=== PATIENT | female | born 1995 | race American Indian/Alaskan Native ===

== ENCOUNTER 2018-05-13 12:39 | Emergency (ER) | payer MEDICAID ==
[2018-05-13 13:14] LABS: HCG Qualitative,Urine Positive (Negative)
--- NOTE | 2018-05-13 14:43 | Emergency Department Report ---
Blank Doc - Documentation Documentation: Patient is a 22-year-old female states that she has had some shortness of breath and dizziness past several days she also is having suicidal thoughts. Patient denies any homicidal thoughts or AUDITORY hallucinations. Patient removed to the main area for complete medical clearance for psychiatric evaluation.
[2018-05-13 15:07] LABS: Basophils % (Auto) 0.3 % (0.0-1.8); Eosinophils % (Auto) 0.4 % (0.0-4.3); Hematocrit 39.4 % (30.3-42.9); Hemoglobin 13.7 gm/dl (10.1-14.3); Lymphocytes # (Auto) 1.8 K/mm3 (1.2-5.4); Lymphocytes % (Auto) 16.3 % (13.4-35.0); Mean Corpuscular HGB Conc 35 % (30-34); Mean Corpuscular Hemoglobin 30 pg (28-32); Mean Corpuscular Volume 87 fl (79-97); Monocytes # (Auto) 0.8 K/mm3 (0.0-0.8); Monocytes % (Auto) 7.1 % (0.0-7.3); Platelet Count 176 K/mm3 (140-440); Red Blood Count 4.51 M/mm3 (3.65-5.03); Red Cell Distribution Width 13.9 % (13.2-15.2)
--- NOTE | 2018-05-13 15:12 | Emergency Department Report ---
HPI - General Chief Complaint: Dyspnea/Respdistress Time Seen by Provider: 05/13/18 14:35 - HPI HPI: 22-year-old female presents to the emergency department with a complaint of feeling "sick" that included some nausea, vomiting, mild shortness of breath and increased fatigue. The patient was found to be with a positive urine test on the fast track side. The patient says that she had a suspicion that she might be but she did not know for sure. Her last menstrual cycle was February 21. She denies any vaginal bleeding but does have some abdominal and/or pelvic cramping. With this she is . The patient also says that she is having suicidal ideations and has been having them for a few weeks. She does not have any particular plan as to how she would harm herself. She does have a history of bipolar disorder and schizoaffective and says that she has been noncompliant with her Risperdal and Zoloft. She denies any hallucinations or any homicidal ideations. She has not taken anything for any of her symptoms prior to presentation. She does not have any primary care physician, [facility] or psychiatrist in the area she says she recently moved from [place]. ED Past Medical Hx - Past Medical History Previous Medical History?: No - Surgical History Past Surgical History?: No - Social History Smoking Status: Never Smoker Substance Use Type: None - Medications Home Medications: Home Medications Medication Instructions Recorded Confirmed Last Taken Type Vit Calc,Iron,Folic 1 each PO QDAY #30 tablet 05/13/18 Unknown Rx [ Vitamins] ED Review of Systems ROS: Stated complaint: SOB/WEAK/DIZZY Other details as noted in HPI Comment: All other systems reviewed and negative Constitutional: other (fatigue). denies: fever Eyes: denies: eye pain, eye discharge, vision change ENT: denies: ear pain, throat pain Respiratory: shortness of breath. denies: cough Cardiovascular: denies: chest pain, palpitations Gastrointestinal: abdominal pain, nausea, vomiting Genitourinary: denies: urgency, dysuria, discharge Musculoskeletal: denies: back pain, joint swelling, arthralgia Skin: denies: rash, lesions Neurological: denies: headache, weakness, paresthesias Physical Exam - Physical Exam Vital Signs: Vital Signs 05/13/18 12:43 Temperature 98.8 F Pulse Rate 94 H Respiratory 18 Rate Blood Pressure 118/69 O2 Sat by Pulse 99 Oximetry Physical Exam: GENERAL: The patient is well-developed well-nourished. HENT: Normocephalic. Atraumatic. Patient has moist mucous membranes. EYES: Extraocular motions are intact. Pupils equal reactive to light bilaterally. NECK: Supple. Trachea is midline. CHEST/LUNGS: Clear to auscultation. There is no respiratory distress noted. HEART/CARDIOVASCULAR: Regular. There is no tachycardia. There is no murmur. ABDOMEN: Abdomen is soft, nontender. Patient has normal bowel sounds. There is no abdominal distention. SKIN: Skin is warm and dry. NEURO: The patient is awake, alert, and oriented. The patient is cooperative. The patient has no focal neurologic deficits. The patient has normal speech. MUSCULOSKELETAL: There is no tenderness or deformity. There is no limitation range of motion. There is no evidence of acute injury. ED Course Vital Signs 05/13/18 12:43 Temperature 98.8 F Pulse Rate 94 H Respiratory 18 Rate Blood Pressure 118/69 O2 Sat by Pulse 99 Oximetry ED Medical Decision Making - Lab Data Result diagrams: 05/13/18 14:52 05/13/18 14:52 - EKG Data -: EKG Interpreted by Me EKG shows normal: sinus rhythm, axis, intervals, QRS complexes, ST-T waves Rate: normal - EKG Data When compared to previous EKG there are: previous EKG unavailable Interpretation: normal EKG - Radiology Data Radiology results: report reviewed, image reviewed interpreted by me: Chest x-ray does not show any acute process. There are no pleural effusions, obvious pneumonia and there is no pneumothorax. EXAM: US OB lt; = 14 WEEKS FETUS HISTORY: abd pain, TECHNIQUE: Transabdominal sonography of the pelvis. PRIORS: None. FINDINGS: There is a single, live intrauterine . Ultrasound estimated gestational age is 11 weeks 6 days. Ultrasound estimated date of confinement is 26 November 2018. heart motion is detected. The right ovary measures 2.6 x 1.5 x 3.4 cm and is grossly unremarkable. The left ovary measures 3.8 x 1.3 x 1.8 cm and is grossly unremarkable. Remainder of uterus and adnexa grossly unremarkable. IMPRESSION: 1. Single, live intrauterine . Transcribed By: [facility] Dictated By: BRADLY JUAN MD Electronically Authenticated By: BRADLY JUAN MD Signed Date/Time: 05/13/181908 - Medical Decision Making This patient presented with the complaints of suicidal ideations but also had some complaints of some recent nausea, vomiting, increased fatigue and occasional shortness of breath. Heart and lung sounds are normal to auscultation. The patient does not have any signs of any respiratory distress. A chest x-ray was done that does not show any pneumonia, pleural effusions, pneumothorax, or any other acute process. Initially, the patient had a urine test that was positive. This may be the reason for her other symptoms. An ultrasound was done that shows a single live intrauterine at about 11 weeks and 6 days. The rest the patient's labs have been unremarkable. Her vital signs are stable throughout her ED course. The patient has been reevaluated multiple times and does not appear to be in any distress. There has been no vomiting within the emergency department the patient has no current complaints of shortness of breath. However the patient does continue to say that she has suicidal ideations. She was seen by the psych outside sales inspector who did not feel that the patient met criteria for inpatient psychiatric treatment. However I have made the patient a 1013 as I do feel that she fits the criteria to be a 1013 and for possible inpatient psychiatric treatment with the criteria of being a danger to oneself with the consistent suicidal ideations and since she has not been stabilized on her medications. She does not appear to have any family support and she does not have any established care from a primary care physician or psychiatrist at this time. The patient will be seen by the psychiatric team tomorrow for further evaluation. I'm starting the patient on vitamins. She will be given outpatient referrals for [facility]ER groups. We are awaiting a urinalysis. However at this time I feel the patient is medically cleared for psychiatric placement. - Differential Diagnosis , depression, bipolar disorder, viral syndrome Critical Care Time: No Critical care attestation.: If time is entered above; I have spent that time in minutes in the direct care of this critically ill patient, excluding procedure time. ED Disposition Clinical Impression: Suicidal ideations Qualifiers: Weeks of gestation: 12 weeks Qualified Code(s): Z3A.12 - 12 weeks gestation of Depression Qualifiers: Depression Type: unspecified Qualified Code(s): F32.9 - Major depressive disorder, single episode, unspecified Disposition: DC/[place]-65 PSY HOSP/PSY UNIT Is pt being admited?: No Condition: Stable Instructions: (ED) Prescriptions: Vit Calc,Iron,Folic [ Vitamins] 1 each PO QDAY #30 tablet Referrals: [facility] [Provider Group] - [facility]/LEONELA MITCHELL [Provider Group] - [facility] Time of Disposition: 19:35
[2018-05-13 15:17] LABS: BUN/Creatinine Ratio 11; Blood Urea Nitrogen 8 mg/dL (7-17); Calcium 9.4 mg/dL (8.4-10.2); Hemolysis Index 23
[2018-05-13 15:25] LABS: INR 0.9 (0.87-1.13)
[2018-05-13 15:26] LABS: Partial Thromboplastin Time 23.3 Sec. (24.2-36.6)
--- NOTE | 2018-05-13 17:01 | XRay Report ---
FINAL REPORT EXAM: XR CHEST 1V AP HISTORY: SOB TECHNIQUE: upright single view chest PRIORS: None. FINDINGS: Cardiac and mediastinal contours are unremarkable. No focal pulmonary infiltrate is identified. No pleural fluid collection seen. Pulmonary vasculature is unremarkable. IMPRESSION: Negative single-view chest
--- NOTE | 2018-05-13 19:14 | Ultrasound Report ---
FINAL REPORT EXAM: US OB < = 14 WEEKS FETUS HISTORY: abd pain, TECHNIQUE: Transabdominal sonography of the pelvis. PRIORS: None. FINDINGS: There is a single, live intrauterine . Ultrasound estimated gestational age is 11 weeks 6 days. Ultrasound estimated date of confinement is 26 November 2018. heart motion is detected. The right ovary measures 2.6 x 1.5 x 3.4 cm and is grossly unremarkable. The left ovary measures 3.8 x 1.3 x 1.8 cm and is grossly unremarkable. Remainder of uterus and adnexa grossly unremarkable. IMPRESSION: 1. Single, live intrauterine .
[2018-05-13] MEDS: PRENATAL VITAMIN PO SCH (22:10)
[2018-05-13 23:02] LABS: Bacteria,Urine 1+ /HPF (Negative); Bilirubin,Urine NEG (Negative); Blood,Urine NEG (Negative); Color,Urine Yellow (Yellow); Protein,Urine <15 mg/dL mg/dL (Negative); RBC,Urine < 1.0 /HPF (0.0-6.0)
[2018-05-13 23:09] LABS: Amphetamine Screen,Urine PRESUMPTIVE NEGATIVE; Benzodiazepines Screen,Urine PRESUMPTIVE NEGATIVE; Cannabinoid Screen,Urine PRESUMPTIVE NEGATIVE; Cocaine Screen,Urine PRESUMPTIVE NEGATIVE; Methadone Screen,Urine PRESUMPTIVE NEGATIVE; Opiate Screen,Urine PRESUMPTIVE NEGATIVE
[2018-05-14] MEDS: ZOFRAN ODT PO PRN (10:30)
[2018-05-14] MEDS: PRENATAL VITAMIN PO SCH (12:38)
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
[2018-05-15] MEDS: ZOFRAN ODT PO PRN (09:51)
[2018-05-15] MEDS: PRENATAL VITAMIN PO SCH (09:51)
--- NOTE | 2018-05-15 18:03 | Progress Note ---
Subjective - Reason for Consult Consult date: 05/15/18 Reason for consult: Psychiatric Follow-up Evaluation - Chief Complaint Chief complaint: " I'm fine" Patient is a 22-year-old female who presents to the emergency department with a complaint of feeling "sick" that included some nausea, vomiting, mild shortness of breath and increased fatigue. The patient was found to be with a positive urine test. Her last menstrual cycle was February 21. Patient has a PPHx of Schizoaffective Disorder, Bipolar Type. Today the patient presents calm and cooperative. She states, " I haven't had any suicidal thoughts today." She reports good sleep and appetite. She denies SI/HI, A/VH, and delusions. Mental Status Exam - Vital signs Last Vital Signs Temp 98.9 F 05/15/18 08:00 Pulse 83 05/15/18 08:00 Resp 20 05/15/18 08:00 BP 106/68 05/15/18 08:00 Pulse Ox 100 05/15/18 08:00 - Exam Narrative exam: Mental Status Exam General Appearance: Causally Dressed-hospital gown Eye Contact: Intermittent Orientation: Alert and oriented x 4 ( person, place, time, and situation) Attitude/Behavior: Cooperative Sensorium: Clear Psychomotor & Musculoskeletal Activity: Ambulatory Mood: "I'm fine." Affect: Constricted Speech/Language: Regular rate and tone Thought Processes: Organized, logical Thought Content: Reality oriented. Patient denies delusions. Perception: Patient denies A/V/T hallucinations. Concentration/Attention: Impaired Suicidal Ideations/Plan: Patient denies. Homicidal Ideations/Plan: Patient denies. Insight: Variable Judgment: Variable Assessment and Plan Impression: PPHx of Schizoaffective Disorder, Bipolar Type. Mood Disorder Unspecified Today the patient presents calm and cooperative during the assessment. She denies SI/HI, A/VH, and delusions. Patient has been noncompliant with medications for 2 months. Urine HCG positive. DDx: r/o MDD, recurrent, severe r/o Bipolar Disorder, II Recommendation/Plan: 1. Continue 1013 and reassess in 24 hours. 2. Gain collateral to determine proper disposition. 3. Patient refuses medication. She does not want to start medication. She would like to wait until she is able to consult with an GINNER. 4. Will monitor mood, psychosis, sleep, appetite, compliance, and side effects.
[2018-05-16] MEDS: PRENATAL VITAMIN PO SCH (11:00)
--- NOTE | 2018-05-16 12:41 | Progress Note ---
Subjective - Reason for Consult Consult date: 05/16/18 Reason for consult: Psychiatry Follow-up - Chief Complaint Chief complaint: "I'm much better" 22-year-old female who presents to the emergency department with a complaint of feeling "sick" that included some nausea, vomiting, mild shortness of breath and increased fatigue. Also, the patient endorsed SI's on admission. Today the patient is calm and cooperative during the assessment. She stated that she felt "overwhelmed" because she had just moved to area with her boyfriend. She stated that she takes Risperdal and Zoloft before she got . She want to see an INTEGRATION SPECIALIST physician before she start taking psy medication. She stated that she reside with a her boyfriend and a family friend locally. She denies SI/HI's, AVH's, and depressuion. Per the record no behavior disturbance overnight. She stated that she is looking forward to being a mother. Mental Status Exam - Vital signs Last Vital Signs Temp 98.2 F 05/15/18 20:00 Pulse 98 H 05/15/18 20:00 Resp 18 05/15/18 20:00 BP 99/54 05/15/18 20:00 Pulse Ox 98 05/15/18 20:00 - Exam Narrative exam: MSE: Appearance: calm, cooperative Behavior: regular eye contact Speech: regular rate and tone Mood: "okay" Affect: congruent to mood Thought Process: logical Thought Content: denies SI/HI's and AVH's Motor Activity: sitting up in bed Cognition: A/O x 3 Insight: appropriate Judgment: appropriate Assessment and Plan Impression: Mood Disorder Unspecified. Today the patient is calm and cooperative during the assessment. The patient is no threat to self. Urine HCG positive. DDx: R/O MDD, recurrent, severe R/O Bipolar Disorder, II Recommendation/Plan: Rescind 1013. Risk/benefit reference medication treatment discussed with patient. She want to see a INTEGRATION SPECIALIST Physician before she start taking psy medication. The patient can follow up with [facility] for outpatient psy services.
--- NOTE | 2018-05-16 15:00 | Emergency Department Report ---
Blank Doc - Documentation Documentation: I saw this patient originally when she came in to the emergency department for some depression and suicidal ideations. She was also found to be and the was evaluated with an ultrasound that showed a live intrauterine . The patient is been in the emergency department for multiple days and has been followed by the psychiatric team. At this time the patient has no suicidal ideations, is calm and appropriate and appears psychiatrically stabilized. The 1013 was rescinded by the psychiatric team and I've been asked to provide discharge paperwork for her. The patient will be given local PATIENT SCHEDULING MANAGER referrals and has been started on vitamins. She was also given some psychiatric outpatient referrals. She has been instructed to return to the emergency Department with any worsening of her symptoms, thoughts of harming herself or others, any concern for , or with any acute distress.
[2018-05-16 16:03] VITALS: BP 115/61
== END 2018-05-16 16:00 | disposition home or self-care (01) ==
LOC: ED 12:39 → EEVIPCON 12:39 → ED 05-16 16:00
DX: O99.341 Other mental disorders complicating pregnancy, first trimester (principal); F31.9 Bipolar disorder, unspecified; O21.9 Vomiting of pregnancy, unspecified; F25.9 Schizoaffective disorder, unspecified; F39 Unspecified mood [affective] disorder; Z3A.12 12 weeks gestation of pregnancy
CPT/HCPCS: 36415; 71045; 76801; 80048; 80307; 81001; 81025; 85025; 85610; 85730; 93005; 93010; 99285; G0480; 80320; Q0162

== ENCOUNTER 2018-06-23 13:21 | Emergency (ER) | payer MEDICAID ==
[2018-06-23 15:25] VITALS: BP 111/61
[2018-06-23] MEDS ORDERED: TYLENOL PO ONE (20:18)
[2018-06-23] MEDS ORDERED: BENADRYL PO ONE (20:18)
[2018-06-23] MEDS ORDERED: DELTASONE PO ONE (20:18)
[2018-06-23] MEDS ORDERED: REGLAN PO ONE (20:19)
--- NOTE | 2018-06-23 20:23 | Emergency Department Report ---
ED Headache HPI - General Chief Complaint: Headache Stated Complaint: 17 WEEKS/NAUSEA Time Seen by Provider: 06/23/18 19:32 Source: patient - History of Present Illness Initial Comments: Patient 22-year-old female with headache 2 weeks patient denies fever intermittent nausea vomiting patient is 17 weeks A0 patient states previous migraines and headache as frontal radiating to the right is mild photophobia dizziness or lightheadedness and mild sinus pressure symptoms are improved by laying down symptoms are exacerbated by movement And activity Timing/Duration: other (2 weeks ) Quality: moderate Head Injury Location: frontal Recent Head Trauma: chronic headaches Modifying Factors: improves with: exposure to light, movement Associated Symptoms: nausea/vomiting, nasal congestion, nasal drainage. denies : confusion, fatigue, facial pain, fever/chills, flushing, loss of consciousness , numbness in legs/feet, rash, seizures, stiff neck, vision changes, weakness Allergies/Adverse Reactions: Allergies No Known Allergies Allergy (Unverified 05/13/18 12:43) Home Medications: Ambulatory Orders Vit Calc,Iron,Folic [ Vitamins] 1 each PO QDAY #30 tablet 05/13 Acetaminophen [Tylenol] 650 mg PO Q6HR PRN #30 tablet 06/23/18 Metoclopramide [Reglan] 10 mg PO TID PRN #30 tab 06/23/18 diphenhydrAMINE [Benadryl CAP] 25 mg PO Q8HR PRN #30 capsule 06/23/18 predniSONE [Deltasone] 20 mg PO QDAY 5 Days #5 tab 06/23/18 ED Review of Systems ROS: Stated complaint: 17 WEEKS/NAUSEA Other details as noted in HPI Constitutional: denies: chills, fever Eyes: denies: eye pain, eye discharge, vision change ENT: denies: ear pain, throat pain Respiratory: denies: cough, shortness of breath, wheezing Cardiovascular: denies: chest pain, palpitations Endocrine: no symptoms reported Gastrointestinal: denies: abdominal pain, nausea, diarrhea Genitourinary: denies: urgency, dysuria, discharge Musculoskeletal: denies: back pain, joint swelling, arthralgia Skin: denies: rash, lesions Neurological: headache. denies: weakness, numbness, paresthesias, confusion, abnormal gait, vertigo, other Psychiatric: denies: anxiety, depression Hematological/Lymphatic: denies: easy bleeding, easy bruising ED Past Medical Hx - Past Medical History Hx Psychiatric Treatment: Yes (BIPOLAR, SCHZOAFFECTIVE) - Surgical History Past Surgical History?: No - Social History Smoking Status: Never Smoker Substance Use Type: None - Medications Home Medications: Home Medications Medication Instructions Recorded Confirmed Last Taken Type Vit Calc,Iron,Folic 1 each PO QDAY #30 tablet 05/13/18 Unknown Rx [ Vitamins] Acetaminophen [Tylenol] 650 mg PO Q6HR PRN #30 tablet 06/23/18 Unknown Rx Metoclopramide [Reglan] 10 mg PO TID PRN #30 tab 06/23/18 Unknown Rx diphenhydrAMINE [Benadryl CAP] 25 mg PO Q8HR PRN #30 capsule 06/23/18 Unknown Rx predniSONE [Deltasone] 20 mg PO QDAY 5 Days #5 tab 06/23/18 Unknown Rx ED Physical Exam - General Limitations: No Limitations General appearance: alert, in no apparent distress - Head Head exam: Present: atraumatic, normocephalic, normal inspection - Eye Eye exam: Present: normal appearance, PERRL, EOMI. Absent: conjunctival injection, nystagmus Pupils: Present: normal accommodation - ENT ENT exam: Present: TM's normal bilaterally - Expanded ENT Exam Expanded Ear exam: Present: normal external inspection Mouth exam: Present: tongue normal, other (clear post nasal drip, nares bilat turbinater erythema with clear post nasal drip). Absent: trismus Teeth exam: Present: normal inspection Throat exam: Positive: normal inspection, tonsillar erythema. Negative: tonsillomegaly, tonsillar exudate, R peritonsillar mass, L peritonsillar mass - Neck Neck exam: Present: normal inspection, full ROM. Absent: tenderness, meningismus, lymphadenopathy, thyromegaly - Expanded Neck Exam Expanded Neck exam: Absent: midline deformity, anterior neck swelling, thyroid mass, carotid bruit, tracheal deviation - Respiratory Respiratory exam: Present: normal lung sounds bilaterally. Absent: respiratory distress, wheezes, rhonchi, stridor, chest wall tenderness - Cardiovascular Cardiovascular Exam: Present: regular rate, normal rhythm, normal heart sounds. Absent: systolic murmur, diastolic murmur, rubs, gallop - GI/Abdominal GI/Abdominal exam: Present: soft, normal bowel sounds. Absent: tenderness, bruit, hernia - Extremities Exam Extremities exam: Present: normal inspection, full ROM - Back Exam Back exam: Present: normal inspection, full ROM. Absent: tenderness, CVA tenderness (R), CVA tenderness (L) - Neurological Exam Neurological exam: Present: alert, oriented X3, CN II-XII intact, normal gait, motor sensory deficit, reflexes normal - Expanded Neurological Exam Expanded Patient oriented to: Present: person, place, time Speech: Present: fluid speech Cranial nerves: EOM's Intact: Normal, Gag Reflex: Normal, Tongue Deviation: Normal, Nystagmus: Normal, Facial Sensation: Normal, Facial Palsy with Forehead Movement: Normal, Facial Palsy without Forehead Movement: Normal Cerebellar function: Finger to Nose: Normal, Heel to [place]: Normal, Romberg: Normal Upper motor neuron: Carlyle Neglect: Normal, Pronator Drift: Normal, Babinski Sign : Normal, Sensory Extinction: Normal Sensory exam: Upper Extremity Light Touch: Normal, Upper Extremity Pin Prick: Normal, Upper Extremity Temperature: Normal, UE 2 Point Discrimination: Normal, Lower Extremity Light Touch: Normal, Lower Extremity Pin Prick: Normal, Lower Extremity Temperature: Normal, LE 2 Point Discrimination: Normal Motor strength exam: RUE: 5, LUE: 5, RLE: 5, LLE: 5 DTR: tricep (R): 2+, tricep (L): 2+, knee (R): 2+, knee (L): 2+ Best Eye Response ([place]): (4) open spontaneously Best Motor Response ([place]): (6) obeys commands Best Verbal Response ([place]): (5) oriented [place] Total: 15 - Psychiatric Psychiatric exam: Present: normal affect, normal mood - Skin Skin exam: Present: warm, dry, intact, normal color. Absent: rash ED Course Vital Signs 06/23/18 15:19 Temperature 98.4 F Pulse Rate 86 Respiratory 18 Rate Blood Pressure 111/61 O2 Sat by Pulse 100 Oximetry ED Medical Decision Making - Medical Decision Making Patient appears with headache recurrent similar headaches in the past same location same duration same intensity patient with URI symptoms including boggy turbinates postnasal drip intermittent clear rhinorrhea mild throat erythema no lesions no exudate there is no stridor no shortness of breath no wheezing or stridor no fever no cervical Lymph nodes are clear patient is tolerating by mouth intake without nausea vomiting there is no blurred vision plan Tylenol Benadryl Reglan short burst of steroids prednisone patient will continue to hydrate and follow up with PCP and [employer] [facility]GER as scheduled in 3 days patient given strict instructions to return to ED if she is unable to tolerate by mouth or should symptoms worsen patient verbalizes understanding and agreement with same pt for dc to home in stable condition at this time. Critical care attestation.: If time is entered above; I have spent that time in minutes in the direct care of this critically ill patient, excluding procedure time. ED Disposition Clinical Impression: Headache Qualifiers: Headache type: unspecified Headache chronicity pattern: unspecified pattern Intractability: not intractable Qualified Code(s): R51 - Headache URI (upper respiratory infection) Qualifiers: URI type: unspecified viral URI Qualified Code(s): J06.9 - Acute upper respiratory infection, unspecified Disposition: DC-01 TO HOME OR SELFCARE Is pt being admited?: No Does the pt Need Aspirin: No Condition: Good Instructions: Acute Headache (ED), Upper Respiratory Infection (ED) Prescriptions: Acetaminophen [Tylenol] 650 mg PO Q6HR PRN #30 tablet PRN Reason: Pain diphenhydrAMINE [Benadryl CAP] 25 mg PO Q8HR PRN #30 capsule PRN Reason: headache Metoclopramide [Reglan] 10 mg PO TID PRN #30 tab PRN Reason: Headache predniSONE [Deltasone] 20 mg PO QDAY 5 Days #5 tab Referrals: [facility] [Provider Group] - 3-5 Days Forms: Work/School Release Form(ED) Time of Disposition: 20:37
== END 2018-06-23 20:55 | disposition home or self-care (01) ==
LOC: ED 13:21
DX: O99.512 Diseases of the respiratory system complicating pregnancy, second trimester (principal); O26.892 Other specified pregnancy related conditions, second trimester; R51 Headache; Z3A.17 17 weeks gestation of pregnancy
CPT/HCPCS: 99282; J7512